=== PATIENT | male | born 1940 ===

== ENCOUNTER 2021-07-15 17:47 | Outpatient (REF) | payer OTHER, SELFPAY ==
[2021-07-15 22:27] LABS: BUN 25 mg/dL (7-18); CREATININE 1.5 mg/dL (0.70-1.30); Calcium 8.7 mg/dL (8.5-10.1); Chloride 104 mmol/L (98-107); Estimated GFR 45.14 (mL/min/1.73m2); Glucose 115 mg/dL (74-106); Potassium 4.3 mmol/L (3.5-5.1); Sodium 140 mmol/L (136-145)
[2021-07-17 11:13] LABS: COVID-19 RT-PCR UVMMC Result Positive (Negative)
== END 2021-07-15 17:48 | disposition home or self-care (01) ==
LOC: LBN 17:47
PROVIDERS: Visit Provider Nurse Practitioner Family
DX: U07.1 COVID-19 (principal)
CPT/HCPCS: 80048; U0003